=== PATIENT | female | born 1985 | race Caucasian/White ===

== ENCOUNTER → 2017-09-10 08:32 | Outpatient (CLI) | payer BC, SELFPAY ==
[2017-09-10 12:21] LABS: Absolute Lymphocyte Count 1.92 X10^3/ul (0.83-4.51); Basophil# 0.03 X10^3/uL; Basophil% 0.5 % (0-1); Eosinophil# 0.09 X10^3/uL; Eosinophils% 1.4 % (0-5); Hematocrit 40.7 % (37-47); Hemoglobin 12.9 g/dl (12.0-15.0); Lymphocyte # 1.92 X10^3/ul (4.0); Lymphocyte % 29.9 % (19-41); Mean Corp Hgb Conc 31.7 g/gl (32-36); Mean Corpuscular Hgb 27.6 pg (27.0-32.0); Mean Platelet Vol. 9.6 fl (6.2-12.0); Monocyte# 0.35 X10^3/uL; Monocyte% 5.5 % (0-10); Neutrophil # 4.03 X10^3/uL (2.7-7.7); Neutrophil % 62.7 % (47-70); Platelet Count 256 K/mm3 (150-450); RBC Distribution Width CV 13.4 % (11.6-14.6); RBC Distribution Width SD 42.7 fl (35.1-43.9); Red Blood Count 4.68 M/mm3 (4.2-5.4); White Blood Count 6.4 K/mm3 (4.4-11.0)
[2017-09-10 12:29] LABS: POSITIVE COUNT NO; POSITIVE DIFFERENTIAL NO; POSITIVE MORPHOLOGY NO
[2017-09-10 12:33] LABS: AST(SGOT) 18 U/L (15-37); Alanine Aminotransfer ALT/SGPT 21 U/L (13-56); Albumin, Serum 3.8 g/dL (3.2-5.0); Alkaline Phosphatase 48 U/L (45-117); Anion Gap 9 (5-15); BUN 11 mg/dL (7-18); BUN/Creat Ratio 12.4 RATIO (10-20); Chloride 107 mmol/L (98-107); Cholesterol 231 mg/dL (200); Creatinine, Serum 0.89 mg/dL (0.55-1.02); EST Glomerular Filtration Rate 78 mL/min (>60); Est Glom Filt Rate - Afr Amer 94 mL/min (>60); Globulin 3.7 g/dL (2.2-4.2); Glucose 90 mg/dL (74-106); High Density Lipoprotein 93 mg/dL; Potassium 3.9 mmol/L (3.5-5.1); Protein, Total 7.5 g/dL (6.4-8.2); Sodium Level 141 mmol/L (136-145); Triglycerides 72 mg/dL; Very Low Density Lipoprotein 14 mg/dL (5-40)
== END ==
PROVIDERS: Family Provider Family Medicine; PCP Family Medicine; Visit Provider Family Medicine
DX: Z13.220 Encounter for screening for lipoid disorders (principal); R53.83 Other fatigue; Z83.49 Family history of other endocrine, nutritional and metabolic diseases
CPT/HCPCS: 36415; 80053; 80061; 85025

== ENCOUNTER → 2019-09-12 09:53 | Outpatient (CLI) | payer OTHER, SELFPAY ==
[2019-09-15 01:52] LABS: HPV Reflexed? NOT INDICATED
== END ==
PROVIDERS: PCP Family Medicine; Visit Provider Family Medicine
DX: Z12.4 Encounter for screening for malignant neoplasm of cervix (principal)
CPT/HCPCS: 88175; G0145

== ENCOUNTER → 2020-07-13 15:09 | Outpatient (CLI) | payer OTHER, SELFPAY ==
[2020-05-31 10:22] VITALS: BMI 26.9
[2020-07-13 16:27] LABS: Prolactin 7.9 ng/mL; Thyroid Stim Hormone (TSH) 2.27 uIU/mL (0.358-3.74)
[2020-07-20 08:31] LABS: Testosterone Free 0.3 pg/mL (0.0-4.2)
== END ==
PROVIDERS: PCP Family Medicine; Referring Provider Nurse Practitioner Women's Health; Visit Provider Nurse Practitioner Women's Health
DX: Z13.29 Encounter for screening for other suspected endocrine disorder (principal); N97.0 Female infertility associated with anovulation
CPT/HCPCS: 36415; 82627; 84146; 84402; 84443; 82626

== ENCOUNTER → 2022-04-28 | Outpatient (CLI) | payer OTHER, SELFPAY ==
[2022-04-28 11:58] LABS: Absolute Lymphocyte Count 1.98 X10^3/uL (0.83-4.51); Absolute Neutrophil Count 4.2 X10^3/uL (2.0-7.7); Basophil# 0.04 X10^3/uL; Basophil% 0.6 % (0-1); Eosinophil# 0.14 X10^3/uL; Hematocrit 39.3 % (37-47); Hemoglobin 12.8 g/dL (12.0-15.0); Lymphocyte # 1.98 X10^3/ul (0.83-4.51); Lymphocyte % 28.6 % (19-41); Mean Corp Hgb Conc 32.6 g/dL (32-36); Mean Corpuscular Hgb 27.6 pg (27.0-32.0); Mean Corpuscular Volume 84.7 fL (81-99); Mean Platelet Vol. 9.5 fl (6.2-12.0); Monocyte# 0.52 X10^3/uL; Monocyte% 7.5 % (0-10); NRBC Flagged by Analyzer 0 % (0-5); Neutrophil # 4.21 X10^3/uL (2.7-7.7); Neutrophil % 60.9 % (47-70); Platelet Count 281 K/mm3 (150-450); RBC Distribution Width CV 12.6 % (11.6-14.6); RBC Distribution Width SD 38.8 fl (35.1-43.9); Red Blood Count 4.64 M/mm3 (4.2-5.4); White Blood Count 6.9 K/mm3 (4.4-11.0)
[2022-04-28 12:09] LABS: ALB/GLOB Ratio 1.3 RATIO (0.9-2.4); AST(SGOT) 17 U/L (15-37); Alanine Aminotransfer ALT/SGPT 23 U/L (13-56); Albumin, Serum 4.1 g/dL (3.2-5.0); Alkaline Phosphatase 53 U/L (45-117); Anion Gap 10 (5-15); BUN 18 mg/dL (7-18); BUN/Creat Ratio 21.1 RATIO (10-20); Calcium,Total 9.3 mg/dL (8.5-10.1); Chloride 103 mmol/L (98-107); Cholesterol 237 mg/dL (200); Creatinine, Serum 0.85 mg/dL (0.55-1.02); EST Glomerular Filtration Rate 79 mL/min (>60); Est Glom Filt Rate - Afr Amer 96 mL/min (>60); Globulin 3.2 g/dL (2.2-4.2); Glucose 102 mg/dL (74-106); High Density Lipoprotein 85 mg/dL; Protein, Total 7.3 g/dL (6.4-8.2); Sodium Level 136 mmol/L (136-145); Triglycerides 55 mg/dL; Very Low Density Lipoprotein 11 mg/dL (5-40)
== END | disposition home or self-care (01) ==
PROVIDERS: PCP Family Medicine; Visit Provider Family Medicine
DX: Z00.00 Encounter for general adult medical examination without abnormal findings (principal)
CPT/HCPCS: 36415; 80053; 80061; 85025

== ENCOUNTER → 2022-12-08 | Outpatient (CLI) | payer OTHER, SELFPAY ==
--- NOTE | 2022-12-08 09:36 | RAD_ITS ---
EXAM: XR CHEST, 2 VIEWS CLINICAL INDICATION: CHEST WALL MUSCLE PAIN TECHNIQUE: Frontal and lateral views of the chest. COMPARISON: No relevant prior studies available. FINDINGS: LUNGS AND PLEURAL SPACES: Unremarkable. No consolidation or edema. No pneumothorax. No effusion. HEART: Unremarkable. Cardiac silhouette not enlarged. MEDIASTINUM: Central airways and mediastinal contour are unremarkable. BONES/JOINTS: Unremarkable. SOFT TISSUES: Unremarkable. RAD/Chest PA and Lateral IMPRESSION: No radiographic evidence of acute cardiopulmonary disease. Electronically Signed: Kei Sanchez MD at 23:36 EDT ,
== END | disposition home or self-care (01) ==
PROVIDERS: PCP Family Medicine; Referring Provider Nurse Practitioner Family; Visit Provider Nurse Practitioner Family
DX: R07.89 Other chest pain (principal)
CPT/HCPCS: 71046

== ENCOUNTER → 2024-08-01 | Outpatient (CLI) | payer OTHER, SELFPAY ==
--- NOTE | 2024-08-01 10:45 | BI_ITS ---
EXAM: SCRN MAMM (CAD)W/DENISE BILAT DATE: 08/01/2024 CLINICAL HISTORY: F, Age 39 y/o , SCREENING Patient's paternal grandmother was diagnosed with breast cancer. BREAST CANCER RISK ASSESSMENT: Has not been calculated. TECHNIQUE: Bilateral screening digital breast tomosynthesis with 2D and 3D images. Computer aided detection. COMPARISON: None. This is a baseline study. FINDINGS: TISSUE DENSITY: The breast tissue is heterogenously dense, which may obscure small masses. Bilateral Breast Mammographic Findings: There are no suspicious masses, suspicious cluster of microcalcifications, architectural distortion or secondary signs of malignancy identified in either breast. A benign-appearing round microcalcification is seen in the right breast. BI/SCRN MAMM (CAD)W/DENISE BILAT IMPRESSION: OVERALL FINAL ASSESSMENT: BIRADS 2 BENIGN FINDING RECOMMENDATION: Routine annual follow-up in 1 Year A letter with findings and recommendations will be mailed to the patient. Reading Location: [id number]
== END | disposition home or self-care (01) ==
PROVIDERS: PCP Family Medicine; Referring Provider Family Medicine; Visit Provider Family Medicine
DX: Z12.31 Encounter for screening mammogram for malignant neoplasm of breast (principal)
CPT/HCPCS: 77063; 77067

== ENCOUNTER → 2025-02-16 | Outpatient (CLI) | payer OTHER, SELFPAY ==
--- OUTSIDE RECORDS SUMMARY | 2025-02-16 06:34 | XMS RPT_ITS | CCD ---
Author Organization [facility] Care Team Providers Care Metrology Manager Name Role Phone Dr. Gayle Proctor DO Primary Care Provider Dr. Gayle Proctor DO Attending Provider Dr. Gayle Proctor DO Referring Provider Gayle Proctor Referring Unavailable Gayle Proctor Attending Unavailable Gayle Proctor Primary Care Unavailable Allergies Allergy Classification Reported Allergen(s) Allergy Type Date of Onset Reaction(s) Facility (3 sources) Sulfonamides (Antibiotic) Allergy to substance 1 [facility] (1 source) Sulfonamides (Antibiotic) Drug allergy (disorder) 1 [facility] Repository Medications Current Medications Medication Drug Class(es) Dates Sig (Normalized) Sig (Original) Multivitamin preparation (2 sources) Start: 05-31-2020 take 1 tablet by mouth once daily Multivitamin Active 1 TABLET PO DAILY May 31, 2020 12:00am Start: 05-31-2020 take 1 tablet by isauro th once daily Multivitamin Active 1 TABLET PO DAILY May 30, 2020 11:00pm Multivitamin tablet (1 source) Start: 05-31-2020 Multivitamin t ablet Active 1 {tbl} PO DAILY May 31, 2020 12:00am Problems Problem Classification Problem Date Documented Da te Episodic/Chronic Other screening for suspected conditions (not mental disorders or infectious disease) (1 source) Encounter for screening mammogram for malignant neoplasm of breast; Translations: [Encounter for screening mammogram for malignant neoplasm of breast] Onset: 08-04-2024 Episodic Results Test Name Value Interpretation Reference Range Facility Breast imaging reportOrdered By: Amy Starr on 08-01-2024 Study report [facility] Imaging Services [address] [place] [address] SCRN MAMM (CAD)W/DENISE BILAT MR#: [id number] Acct: [id number] Name: HERBER MILLER Rep #: [id number] : 1985 F 39 From: Armando Starr DO PCP: Dr. Gayle Proctor DO Status: REG CLI Study:SCRN MAMM (CAD)W/DENISE BILAT Date of Exa m: 08/01/24 Exam# [id number] Ordering Dr: Margarita Proctor sa, DO EXAM: SCRN MAMM (CAD)W/DENISE BILAT DATE: 08/01/2024 CLINICAL HISTORY: F, Age 39 y/o , SCREENING Patient's paternal grandmother was diagnosed with breast cancer. BREAST CANCER RISK ASSESSMENT: Has not been calculated. TECHNIQUE: Bilateral screening digital breast tomosynthesis with 2D and 3D images. Computeraided detection. COMPARISON: None. This is a baseline study. FINDINGS: TISSUE DENSITY: The breast tissue is heterogenously dense, which may obscure small masses. Bilateral Breast Mammographic Findings: There are no suspicious masses, suspicious cluster of microcalcifications, architectural distortion or secondary signs of malignancy identified in either breast. A benign-appearing round microcalcification is seen in the right breast. BI/SCRN MAMM (CAD)W/DENISE BILAT IMPRESSION: OVERALL FINAL ASSESSMENT: BIRADS 2 BENIGN FINDING RECOMMENDATION: Routine annual follow-up in 1 Year A letter with findings and recommendations will be mailed to the patient. Reading Location: [id number] CC: Dr. Gayle Proctor DO ~ Machine Shop Apprentice: Signed [facility] SCRN MAMM (CAD)W/DENISE BILATo n 08-01-2024 SCRN MAMM (CAD)W/DENISE BILAT [facility] Imaging Services [address] [place] [id number] SCRN MAMM (CAD)W/DENISE BILAT MR#: [id number] Acct: [id number] Name: KEYURHERBER SAVAGEHLEEN Rep #: [id number] : 1985 F 39 From: Amy Bolanos PCP: Dr. Gayle Proctor DO Status: REG CLI Study: SCRN MAMM (CAD)W/DENISE BILAT Date of Exam: 04/26 Exam# [id number] Ordering Dr: Gayle Proctor DO EXAM: SCRN MAMM (CAD)W/DENISE BILAT DATE: 08/01/2024 CLINICAL HISTORY: F, Age 39 y/o , SCREENING Patient's paternal grandmother was diagnosed with breast cancer. BREAST CANCER RISK ASSESSMENT: Has not been calculated. TECHNIQUE: Bilateral screening digital breast tomosynthesis with 2D and 3D images. Computer aided detection. COMPARISON: None. This is a baseline study. FINDINGS: TISSUE DENSITY: The breast tissue is heterogenously dense, which may obscure small masses. Bilateral Breast Mammographic Findings: There are no suspicious masses, suspicious cluster of microcalcifications, architectural distortion or secondary signs of malignancy identified in either breast. A benign-appearing round microcalcification is seen in the right breast. BI/SCRN MAMM (CAD)W/DENISE BILAT IMPRESSION: OVERALL FINAL ASSESSMENT: BIRADS 2 BENIGN FINDING RECOMMENDATION: Routine annual follow-up in 1 Year A letter with findings and recommendations will be mailed to the patient. Reading Location: [facility] CC: Dr. Gayle Proctor DO Machine Shop Apprentice: Signed Normal [facility] Absolute lymphocyte countOrd ered By: Dr. Proctor on 04-28-2022 Lymphocytes Auto (Unsp spec) [#/Vol] 1.98 10*3/uL 0.83-4.51 [facility] Basophil percentageOrdered B y: Dr. Proctor on 04-28-2022 Basophils/100 WBC (Bld) 0.6 % 0-1 [facility] Bilirubin [Mass/Vol] 0.40 mg/dL 0.20-1.00 [facility] Comment on above: For patients on eltr ombopag therapy, use of Dimension [place] TBIL is not recommended. Chloride [Moles/Vol] 103 mmol/L 98-107 [facility] Cholesterol [Mass/Vol] 237 mg/dL <200 [facility] Comment on above: <200 mg/dL Desirable 200-240 mg/dL Borderline >240 mg/dL High Risk Eosinophils/100 WBC (Bld) 2.0 % 0-5 [facility] Glucose [Mass/Vol] 102 mg/dL 74-106 [facility] Comment on above: Fasting Glucose resu lt from 100 to 125 mg/dL suggests IMPAIRED HOMEOSTASIS per A.D.A. criteria. Neutrophils (Bld) [#/Vol] 4.2 10*3/uL 2.0-7.7 [facility] Neutrophils/100 WBC (Bld) 60.9 % 47-70 [facility] Potassium [Moles/Vol] 4.0 mmol/L 3.5-5.1 [facility] Protein [Mass/Vol] 7.3 g/dL 6.4-8.2 [facility] Sodium [Moles/Vol] 136 mmol/L 136-145 [facility] Triglyceride [Mass/Vol] 55 mg/dL <199 [facility] Comment on above: The drugs N-Acetylcy steine and Metamizole may falsely depress this assay.Serum Triglycerides Reference Interval Normal <150 mg/dL Borderline high 150 - 199 mg/dL High 200 - 499 mg/dL Very High > or = 500 mg/dL WBC (Bld) [#/Vol] 6.9 10*3/uL 4.4-11.0 [facility] Blood erythrocytes count (nu mber/volume)Ordered By: Dr. Proctor on 04-28-2022 RBC (Bld) [#/Vol] 4.64 10*6/uL 4.2-5.4 [facility] Blood hemoglobin measurement (mass/volume)Ordered By: Dr. Proctor on 04-28-2022 Hemoglobin (Bld) [Mass/Vol] 12.8 g/dL 12.0-15.0 [facility] Blood lymphocytes/100 leukoc ytesOrdered By: Dr. Proctor on 04-28-2022 Lymphocytes/100 WBC (Bld) 28.6 % 19-41 [facility] Blood monocytes/100 leukocyt esOrdered By: Dr. Proctor on 04-28-2022 Monocytes/100 WBC (Bld) 7.5 % 0-10 [facility] Blood platelet mean volumeOr dered By: Dr. Proctor on 04-28-2022 Platelet mean volume (Bld) [Entitic vol] 9.5 fL 6.2-12.0 [facility] Determination of erythrocyte mean corpuscular volume (MCV)Ordered By: Dr. Proctor on 04-28-2022 MCV (RBC) [Entitic vol] 84.7 fL 81-99 [facility] Hematocrit Auto (Bld) [Volum e fraction]Ordered By: Dr. Proctor on 04-28-2022 Hematocrit (Bld) [Volume fraction] 39.3 % 37-47 [facility] Laboratory - Chemistry and C hemistry - challengeOrdered By: Dr. Proctor on 04-28-2022 ALP [Catalytic activity/Vol] 53 U/L 45-117 [facility] ALT [Catalytic activity/Vol] 23 U/L 13-56 [facility] CO2 [Moles/Vol] 23.0 mmol/L 21.0-32.0 [facility] Globulin (S) [Mass/Vol] 3.2 g/dL 2.2-4.2 [facility] Urea nitrogen/Creatinine [Mass ratio] 21.1 mg/mg 10-20 [facility] Laboratory - Hematology and Cell countsOrdered By: Dr. Proctor on 04-28-2022 Erythrocyte distribution width (RBC) [Entitic vol] 38.8 fL 35.1-43.9 [facility] Erythrocyte distribution width (RBC) [Ratio] 12.6 % 11.6-14.6 [facility] Immature granulocytes/100 WBC (Bld) 0.400 % 0.0-0.9 [facility] Comment on above: IG% - Immature Granu locytes (promyelocytes, myelocytes and metamyelocytes) > 1% indicates that a LEFT SHIFT is Present. MCH (RBC) [Entitic mass] 27.6 pg 27.0-32.0 [facility] Nucleated RBC/100 WBC (Bld) [Ratio] 0 % 0-5 [facility] MCHC Auto (RBC) [Mass/Vol]Or dered By: Dr. Proctor on 04-28-2022 MCHC (RBC) [Mass/Vol] 32.6 g/dL 32-36 [facility] No Panel InformationOrdered By: Dr. Proctor on 04-28-2022 Estimated GFR (MDRD) Amer 96 mL/min >60 [facility] Comment on above: GFR Calc Estimated GFR (MDRD) Non-Af Amer 79 mL/min >60 [facility] Comment on above: Non- GFR Calc Platelets bldOrdered By: Dr. Proctor on 04-28-2022 Platelets (Bld) [#/Vol] 281 10*3/uL 150-450 [facility] Serum or plasma albumin cassi urement (mass/volume)Ordered By: Dr. Proctor on 04-28-2022 Albumin [Mass/Vol] 4.1 g/dL 3.2-5.0 [facility] Serum or plasma albumin/glob ulin mass ratioOrdered By: Dr. Proctor on 04-28-2022 Albumin/Globulin [Mass ratio] 1.3 {ratio} 0.9-2.4 [facility] Serum or plasma calcium cassi urement (mass/volume)Ordered By: Dr. Proctor on 04-28-2022 Calcium [Mass/Vol] 9.3 mg/dL 8.5-10.1 [facility] Serum or plasma cholesterol in HDL measurement (mass/volume)Ordered By: Dr. Proctor on 04-28-2022 Cholesterol in HDL [Mass/Vol] 85 mg/dL >40 [facility] Comment on above: The drugs N-Acetylcy steine and Metamizole may falsely depress this assay. Reference Range HDL <40 mg/dL Low HDL Cholesterol HDL >or= 60 mg/dL High HDL Cholesterol Serum or plasma cholesterol in VLDL measurement (mass/volume)Ordered By: Dr. Proctor on 04-28-2022 Cholesterol in VLDL [Mass/Vol] 11 mg/dL 5-40 [facility] Serum or plasma creatinine m easurement (mass/volume)Ordered By: Dr. Proctor on 04-28-2022 Creatinine [Mass/Vol] 0.85 mg/dL 0.55-1.02 [facility] Comment on above: The validity of the calculated GFR & GFRAA in patients over 70 years has not been determined. Clinical correlation is essential. Serum or plasma low density lipoprotein (LDL) cholesterol measurement (mass/volume)Ordered By: Dr. Proctor on 02-27-2023 Cholesterol in LDL [Mass/Vol] 141 mg/dL 0-130 [facility] Serum or plasma urea nitroge n measurement (mass/volume)Ordered By: Dr. Proctor on 04-28-2022 Urea nitrogen [Mass/Vol] 18 mg/dL 7- [facility] Thin prep Papanicolaou smear with manual screeningOrdered By: Dr. Proctor on 04-28-2022 Thin prep Papanicolaou smear with manual screening 17 U/L 15-37 [facility] Thin prep Papanicolaou smear with manual screening 10 5-15 [facility] XR HYSTEROSALPINGOGRAPHYon 0 09-13-2020 XR HYSTEROSALPINGOGRAPHY ORIGINAL EXAMINATION: FLUOROSCOPIC HYSTEROSALPINGOGRAM 09/12/2020 2:27 pm TECHNIQUE: Informed consent was obtained and universal protocol was observed. Fluoroscopic hysterosalpingogram was performed after cannulization of the cervix and administration of contrast into the uterine cavity. FLUOROSCOPY DOSE AND TYPE OR TIME AND EXPOSURES: 0.5 minutes fluoroscopy time. 19.39 mGy dose. 4 digital images. Study performed by gynecology. COMPARISON: none HISTORY: ORDERING SYSTEM PROVIDED HISTORY: Encounter for fertility testing Reason for Exam: Encounter for fertility testing FINDINGS: There is normal opacification of the fallopian tubes with free spill of contrast into the peritoneal cavity. There is normal filling of the endometrial cavity without evidence of endometrial filling defect. IMPRESSION: Patent bilateral fallopian tubes. Interpreted by: Alvin Borjas Preliminary Report By: Alvin Borjas Electronically signed By Alvin Borjas Dictated Date: 09/13/2020 3:47:16 PM Prelim Date: 09/13/2020 3:48:24 PM Sign Date: 09/13/2020 3:48:24 PM Ordering Provider: AMANDA Anderson [facility] ([place]) CNOVon 08-17-2017 CNOV Office Visit ([facility]) ----HERBER MILLER ([id number]) 1985 FDate Time Provider Department08/17/17 7:00 AM ANA AL) [facility] During your visit today, we recorded the following information about you: Temperature Pulse Respiration Blood pressure 98.6 degrees 74/minute 16/minute 120/68 Weight Last Period 57.6 kg 08/10/17Ana Al PA-C 08/17/2017 9:23 AM Addendum08/17/2017Pati ent presents with:Finger Injury: right little finger-stubbed on saturdaysUBJECTIVE: This is a 32 year old that is here today for Complaint(s) of rightpinky x Thursday. Patient was involved an an adventure race and was pulling arope when she slipped and thinks she jammed her finger. Swelling is slightlyimproved today. Pain is minimal. Has tried ibuprofen with some relief. Deniesnumbness/tingli ngNo past medical history on file.ALLERGIES Sulfa (Sulfonamide Antibiotics)MEDICATIO NSCurrent Outpatient Prescriptions:norgest imate-ethinyl estradiol (SPRINTEC, 28, ORAL) Take by mouth.No current facility-administered medications for this visit.SOCIAL HISTORYSocial History Marital status: Spouse name: Years of education: Number of children:Social History Main Topics Smoking status: Never Smoker Smokeless tobacco: Never UsedREVIEW OF SYSTEMSAll other reviewed and negative other than HPI.OBJECTIVE:BP 120/68 Pulse 74 Temp 37 ?C (98.6 ?F) (Tympanic) Resp 16 Wt 57.6kg (127 lb) LMP 08/10/2017APPEARANCE Well appearing, alert, in no acute distress, well-hydrated, wellnourished.EXTREMI TIES right pinky finger with slightly diminished flexion of the DIPjoint. + mild edema of fifth finger DIP and PIP. Superficial abrasion overdistal phalanx without surrounding erythema, warmth or TTP. Mild TTP of DIP.No TTP of proximal phalanx. Neurovascular status intact.ASSESSMENT/[place] N:1. Finger injury, right, initial encounter - ICD9: 959.5, ICD10: S69.91XADiscussed XR today, patient prefers to splint and wait at this timeFinger splint applied. Ice, motrin, restf/u in 7-10 days if not improving with splint, sooner if worseningReviewed red flags and when to seek care sooner.The patient indicates understanding of these issues and agrees with the plan.TANYA Freeman-08/17/2017Patient presents with:Finger Injury: right little finger-stubbed on saturdaysUBJECTIVE: This is a 32 year old that is here today for Acute onset of fingerinjury.Thursday morning was doing an adventure race. Cannot remember exactly whathappened but trauma to finger. Says that finger has improved since Thursday.Has used bandaids and finger splits which seem to help. Has taken ibuprofen forthe pain with some relief. Pain localized to DIP joint with evidence ofmoderate swelling. Can bend it to 40-60 degrees. Denies numbness and tingling,fevers, chills, evidence of wound infection.No past medical history on file.ALLERGIES Sulfa (Sulfonamide Antibiotics)MEDICATIO NSCurrent Outpatient Prescriptions:norgest imate-ethinyl estradiol (SPRINTEC, 28, ORAL) Take by mouth.No current facility-administered medications for this visit.SOCIAL HISTORYSocial History Marital status: Spouse name: Years of education: Number of children:Social History Main Topics Smoking status: Never Smoker Smokeless tobacco: Never UsedREVIEW OF SYSTEMSAll other reviewed and negative other than HPI.OBJECTIVE:BP 120/68 Pulse 74 Temp 37 ?C (98.6 ?F) (Tympanic) Resp 16 Wt 57.6kg (127 lb) LMP 08/10/2017APPEARANCE Well appearing, alert, in no acute distress, well-hydrated, wellnourished.EXTREMI TIES: R pinky finger with moderate swelling in DIP and PIP joints.Evidence of bruising present with superficial abrasion. Diminished flexion to40-60 degrees. No diminished capillary refill, neurological impairment orevidence of infection present.Assessment/Pl an:ASSESSMENT/PLAN:1. Finger injury, right, initial encounter - ICD9: 959.5, ICD10: S69.91XARight pinky finger splint given to immobilize PIP and DIP joints.Advised to take ibuprofen as needed and return to clinic if there is noimprovement in symptoms for X-ray of finger.Leeann MASON obtained history and the patient was physically examined by me. I am inagreement with the PA student's assessment and treatment plan.TANYA Freeman-CReferring Provider: SELF [[id number]]Allergies As of Date: 08/17/2017 Noted Allergy ReactionSULFA (SULFONAMIDE ANTIBIOTICS) 08/17/2017 4 - HivesDate Reviewed: Never ReviewedReason for Visit: Finger Injury [2342] Cmt: right little finger-stubbed on thursdayPrimary Visit Diagnosis:Finger injury, right, initial encounter [S69.91XA]Prescriptio ns as of 08/17/2017 Sig: SPRINTEC (28) ORAL Take by mouth.Problem List As Of Date: 08/17/2017(None)Encou nter Number: [id number] Status:Closed by ANA AL PA-C on 08/17/17 [facility] PROGRESSon 08-17-2017 PROGRESS HNO ID: [id number]: Ana Cash) Zenaervice: (none)Author Type: Physician AssistantType: Progress NotesFiled: 08/17/2017 9:23 AMNote Text:08/17/2017Patient presents with:Finger Injury: right little finger-stubbed on saturdaysUBJECTIVE: This is a 32 year old that is here today for Complaint(s) ofright pinky x Thursday. Patient was involved an an adventure race and waspulling a rope when she slipped and thinks she jammed her finger.Swelling is slightly improved today. Pain is minimal. Has triedibuprofen with some relief. Denies numbness/tinglingNo past medical history on file.ALLERGIES Sulfa (Sulfonamide Antibiotics)MEDICATIO NSCurrent Outpatient Prescriptions:norgest imate-ethinyl estradiol (SPRINTEC, 28, ORAL) Take by mouth.No current facility-administered medications for this visit.SOCIAL HISTORYSocial History Marital status: Spouse name: Years of education: Number of children:Social History Main Topics Smoking status: Never Smoker Smokeless tobacco: Never UsedREVIEW OF SYSTEMSAll other reviewed and negative other than HPI.OBJECTIVE:BP 120/68 Pulse 74 Temp 37 ?C (98.6 ?F) (Tympanic) Resp 16 Wt57.6 kg (127 lb) LMP 08/10/2017APPEARANCE Well appearing, alert, in no acute distress, well-hydrated,well nourished.EXTREMITIES right pinky finger with slightly diminished flexion of theDIP joint. + mild edema of fifth finger DIP and PIP. Superficial abrasionover distal phalanx without surrounding erythema, warmth or TTP. Mild TTPof DIP. No TTP of proximal phalanx. Neurovascular status intact.ASSESSMENT/CL[place]ON N:1. Finger injury, right, initial encounter - ICD9: 959.5, ICD10: S69.91XADiscussed XR today, patient prefers to splint and wait at this timeFinger splint applied. Ice, motrin, restf/u in 7-10 days if not improving with splint, sooner if worseningReviewed red flags and when to seek care sooner.The patient indicates understanding of these issues and agrees with theplan.TANYA Freeman-08/17/2017Patient presents with:Finger Injury: right little finger-stubbed on saturdaysUBJECTIVE: This is a 32 year old that is here today for Acute onset offinger injury.Thursday morning was doing an adventure race. Cannot remember exactly whathappened but trauma to finger. Says that finger has improved sinceSatday. Has used bandaids and finger splits which seem to help. Hastaken ibuprofen for the pain with some relief. Pain localized to DIP jointwith evidence of moderate swelling. Can bend it to 40-60 degrees. Deniesnumbness and tingling, fevers, chills, evidence of wound infection.No past medical history on file.ALLERGIES Sulfa (Sulfonamide Antibiotics)MEDICATIO NSCurrent Outpatient Prescriptions:norgest imate-ethinyl estradiol (SPRINTEC, 28, ORAL) Take by mouth.No current facility-administered medications for this visit.SOCIAL HISTORYSocial History Marital status: Spouse name: Years of education: Number of children:Social History Main Topics Smoking status: Never Smoker Smokeless tobacco: Never UsedREVIEW OF SYSTEMSAll other reviewed and negative other than HPI.OBJECTIVE:BP 120/68 Pulse 74 Temp 37 ?C (98.6 ?F) (Tympanic) Resp 16 Wt57.6 kg (127 lb) LMP 08/10/2017APPEARANCE Well appearing, alert, in no acute distress, well-hydrated,well nourished.EXTREMITIES : R pinky finger with moderate swelling in DIP and PIP joints.Evidence of bruising present with superficial abrasion. Diminished flexionto 40-60 degrees. No diminished capillary refill, neurological impairmentor evidence of infection present.Assessment/Pl an:ASSESSMENT/PLAN:1. Finger injury, right, initial encounter - ICD9: 959.5, ICD10: S69.91XARight pinky finger splint given to immobilize PIP and DIP joints.Advised to take ibuprofen as needed and return to clinic if there is noimprovement in symptoms for X-ray of finger.Leeann MASON obtained history and the patient was physically examined by me. I am inagreement with the PA student's assessment and treatment plan.Ana Al PA-C Normal [facility] Encounters Encounter Date Encounter Type Care Provider Facility Start: 08-01-2024 End: 08-01-[address] Gayle Proctor DO Work Phone: [facility] Work Phone: Start: 08-01-2024 End: 08-01-[address] Gayle Proctor DO -Outpatient Breast Imaging Work Phone: Start: 08-01-2024 End: 08-01-2024 ambulatory Gayle Proctor Facility:[facility] Start: 12-08-2022 End: 12-08-2022 ambulatory [facility] Work Phone: Start: 12-08-2022 End: 12-08-2022 Patient encounter procedure [facility]-Radiology, [place] Work Phone: Start: 04-28-2022 End: 04-28-2022 ambulatory [facility] Work Phone: Start: 04-28-2022 End: 04-28-2022 Patient encounter procedure [facility]-[place] [place] [facility] Start: 08-17-2017 End: 08-19-2017 Ambulatory [facility] Procedures Date Procedure Procedure Detail Performing Clinician Start: 08-01-2024 Screening mammography Florin Proctor DO Work Phone: Start: 12-08-2022 Plain chest X-ray Payers Date Payer Category Payer Self-pay [id number] 2024 Private Health Insurance [id number] 2015 Unknown ROB [id number] Private Health Insurance [employer] [id number] Unknown [id number] Social History Date Type Detail Facility Start: 05-31-2020 End: 05-31-2020 Tobacco smoking status NMIS Unknown if ever smoked [facility] Start: 1985 Sex Assigned At Female [facility] Start: 05-31-2020 Tobacco smoking stat us NMIS Never smoked tobacco (finding) [facility] Evaluation note Note Date & Type Note Facility Evaluation note No assessment information availa ble [facility] Work Phone: Reason for referral (narrative) Note Date & Type Note Facility Reason for referral (narrative) No reason for referral information available [facility] Work Phone: Summary Purpose Family History No Family History Records Found Relationship Condition Age at Onset Recorded Date/T jaya mother Hypertension Unknown father Hyperlipidemia Unknown Diabetes mellitus Unknown grandfather Cardiac disease Unknown Hyperlipidemia Unknown Hypertension Unknown grandmother Hypertension Unknown Cardiac disease Unknown Malignant neoplasm of breast Unknown aunt Malignant neoplasm of breast Unknown Advance Directives No Advanced Directives Records FoundNo Advanced Directives Records FoundNo Advanced Directives Records Found Chief Complaint and Reason for Visit Chief Complaint Admit Date SCREENING August 01, 2024 10:13 am Additional Source Comments INFORMATION SOURCE (unrecogn ized section and content) DATE CREATED AUTHOR 08/19/2017 [facility] DATE CREATED AUTHOR AUTHOR'S ORGANIZ ATION 09/13/2020 [facility] ([place]) DATE CREATED AUTHOR AUTHOR'S ORGANIZ ATION 08/05/2024 [facility] Care Teams (unrecognized sec tion and content) Team Status: Active Member Role Status Dates Dr. Gayle Proctor DO Family Provider Active Dr. Gayle Proctor DO Primary Care Provider Active Team Status: Inactive Member Role Status Dates Dr. Gayle Proctor DO Primary Care Provider, Attending P juanpablo Active Team Status: Inactive Member Role Status Dates Dr. Gayle Proctor DO Primary Care Provider Active Kathleen Ayoub [employer] Attending Provider, Referring Prov ider Active Team Status: Active Member Role Status Dates Dr. Gayle Proctor DO Primary Care Provider Active Team Status: Inactive Member Role Status Dates Dr. Gayle Proctor DO Primary Care Provider Active Start: August 01, 2024 End: August 01, 2024 Dr. Gayle Proctor DO Attending Provider Active St art: August 01, 2024 End: August 01, 2024 Dr. Gayle Proctor DO Referring Provider Active St art: August 01, 2024 End: August 01, 2024 Goals (unrecognized section and content) Goals may be documented in a n alternate sectionGoals may be documented in an alternate sectionGoals may be documented in an alternate section FOR RECORDS PERTAINING TO PATIENTS WHO ARE OR HAVE BEEN ENROLLED IN A CHEMICAL DEPENDENCY/SUBSTANCEABUSE PROGRAM, SOME INFORMATION MAY BE OMITTED. This clinical summary was aggregated from multiple sources. Caution should be exercised in using it in the provision of clinical care. This summary normalizes information from multiple sources, and as a consequence, information in this document may materially change the coding, format and clinical context of patient data. In addition, data may be omitted in some cases. CLINICAL DECISIONS SHOULD BE BASED ON THE PRIMARY CLINICAL RECORDS. [facility] [employer] provides no warranty or guarantee of the accuracy or completeness of information in this document.
[2025-02-16 07:29] LABS: Hematocrit 37.5 % (37-47); Hemoglobin 12.0 g/dL (12.0-15.0); Immature Granulocytes Count 0.020 X10^3/uL (0.0-0.0); Mean Corp Hgb Conc 32.0 g/dL (32-36); Mean Corpuscular Volume 84.1 fL (81-99); Mean Platelet Vol. 9.3 fl (6.2-12.0); NRBC Flagged by Analyzer 0 % (0-5); Platelet Count 262 K/mm3 (150-450); RBC Distribution Width CV 13.0 % (11.6-14.6); RBC Distribution Width SD 39.8 fl (35.1-43.9); Red Blood Count 4.46 M/mm3 (4.2-5.4); White Blood Count 6.0 K/mm3 (4.4-11.0)
[2025-02-16 08:07] LABS: AST(SGOT) 19 U/L (<=31); Alanine Aminotransfer ALT/SGPT 15 U/L (<=34); Albumin, Serum 4.3 g/dL (3.5-5.0); Alkaline Phosphatase 53 U/L (35-104); Anion Gap 10 (5-15); BUN 10 mg/dL (4-19); BUN/Creat Ratio 10.3 RATIO (10-20); Calcium,Total 9.2 mg/dL (7.6-11.0); Carbon Dioxide 23.6 mmol/L (21.0-32.0); Chloride 105 mmol/L (98-108); Cholesterol 195 mg/dL (<=200); Globulin 2.3 g/dL (2.2-4.2); Glucose 105 mg/dL (70-99); Low Density Lipoprotein Calc. 106 mg/dL; Potassium 4.1 mmol/L (3.3-5.1); Triglycerides 49 mg/dL; Very Low Density Lipoprotein 10 mg/dL (5-40); cholesterol:hdl ratio screen 2.46
== END | disposition home or self-care (01) ==
PROVIDERS: PCP Family Medicine; Referring Provider Nurse Practitioner Family; Visit Provider Nurse Practitioner Family
DX: Z00.00 Encounter for general adult medical examination without abnormal findings (principal)
CPT/HCPCS: 36415; 80053; 80061; 85025